=== PATIENT | male | born 1955 | race Caucasian/White ===

== ENCOUNTER → 2017-02-12 | Outpatient (CLI) | payer BC ==
[~2017-02-12] MED LIST: ADVIL PO; ASPI-232 PO; COLE1TAB5 PO; DVN/160 PO; GLC850 PO; GLIP10TA9 PO; MULT-506 PO; SILD50TA PO; SIMV80TA5 PO; TERA5CAP PO
--- NOTE | 2017-02-12 14:22 | DIAGNOSTIC IMAGING REPORT ---
CHEST 2 VIEWS ROUTINE CLINICAL HISTORY: PERSISTENT DRY COUGH COMPARISON STUDY: 08/12/2013 FINDINGS: The cardiac and mediastinal contours are normal. There is no evidence of focal pulmonary consolidation. There is no evidence of failure. No pleural effusions are visualized.[ There is minor linear scar/atelectasis the left lung base. IMPRESSION: No active disease in the chest. Electronically signed by: Arvin Hawkins M.D. 02/12/2017 2:21 PM Dictated Date/Time: 02/12/2017 2:21 PM
== END | disposition home or self-care (01) ==
LOC: C.RAD1850 14:04
PROVIDERS: ATTEND Physician Assistant
DX: R05 Cough (principal)